=== PATIENT | female | born 1975 | race Caucasian/White ===

== ENCOUNTER 2018-05-01 02:29 | Emergency (ER) | payer SELFPAY ==
[2018-05-01] MEDS: KETOROLAC 15 MG/ML VIAL. IV (03:24)
[2018-05-01] MEDS: fentaNYL PF VIAL 100 MCG/2 ML VIAL IV (03:24)
[2018-05-01 03:49] LABS: ADD MAN DIFF? NO
[2018-05-01 03:53] LABS: BILIRUBIN,URINE NEGATIVE (NEG); CLARITY,URINE CLEAR; COLOR,URINE YELLOW; GLUCOSE,URINE NEGATIVE (NEG); NITRITE,URINE NEGATIVE (NEG); PROTEIN,URINE NEGATIVE (NEG-TRACE)
[2018-05-01 03:54] LABS: BASO # 0.1 x10^3/uL (0.0-0.2); BASO % 1 % (0-3); EOS # 0.1 x10^3/uL (0.0-0.7); EOS % 1 % (0-3); HEMATOCRIT 38.8 % (36.0-47.0); HEMOGLOBIN 13.1 g/dL (12.0-15.5); LYMPH # 1.8 x10^3/uL (1.0-4.8); LYMPH % 18 % (24-48); MEAN CORPUSCULAR HEMOGLOBIN 32 pg (25-35); MEAN CORPUSCULAR HGB CONC 34 g/dL (31-37); MEAN CORPUSCULAR VOLUME 94 fL (79-100); MONO # 0.4 x10^3/uL (0.0-1.1); MONO % 4 % (0-9); NEUT # 7.9 x10^3uL (1.8-7.7); NEUT % 77 % (31-73); PLATELET COUNT 168 x10^3/uL (140-400); RED BLOOD COUNT 4.11 x10^6/uL (3.50-5.40); RED CELL DISTRIBUTION WIDTH 13.3 % (11.5-14.5); WHITE BLOOD COUNT 10.2 x10^3/uL (4.0-11.0)
[2018-05-01 04:05] LABS: BACTERIA,URINE 0 /HPF (0-FEW); HYALINE CASTS, URINE OCCASIONAL /HPF; RBC,URINE TNTC /HPF (0-2); SQUAMOUS EPITHELIAL CELL,UR FEW /LPF; WBC,URINE OCC /HPF (0-4)
[2018-05-01 04:09] LABS: ANION GAP 11 (6-14); BLOOD UREA NITROGEN 15 mg/dL (7-20); BUN/CREATININE RATIO 17 (6-20); CALCIUM 9.7 mg/dL (8.5-10.1); CARBON DIOXIDE 26 mmol/L (21-32); CHLORIDE 101 mmol/L (98-107); CREATININE 0.9 mg/dL (0.6-1.0); GFR 68.7; GLUCOSE 114 mg/dL (70-99); POTASSIUM 3.7 mmol/L (3.5-5.1); SODIUM 138 mmol/L (136-145)
[2018-05-01 04:14] LABS: ALBUMIN 4.1 g/dL (3.4-5.0); ALBUMIN/GLOBULIN RATIO 1.1 (1.0-1.7); ALK PHOS 82 U/L (46-116); ALT (SGPT) 18 U/L (14-59); AST (SGOT) 14 U/L (15-37); TOTAL BILIRUBIN 0.6 mg/dL (0.2-1.0); TOTAL PROTEIN 7.7 g/dL (6.4-8.2)
== END 2018-05-01 04:27 | disposition home or self-care (01) ==
LOC: ER 02:29
DX: N20.2 Calculus of kidney with calculus of ureter (principal); Z90.710 Acquired absence of both cervix and uterus
CPT/HCPCS: 36415; 74176; 80053; 81001; 85025; 96374; 96375; 99285-25; J1885; J3010

== ENCOUNTER 2018-07-23 02:34 | Emergency (ER) | payer SELFPAY ==
[~2018-07-23] VITALS: Ht 167.6 cm; Wt 68.0 kg
[~2018-07-23 02:34] MED LIST: HYDR-971 PO; TAMS0.4C97 PO
[2018-07-23 03:03] LABS: BILIRUBIN,URINE NEGATIVE (NEG); CLARITY,URINE CLEAR; COLOR,URINE YELLOW; NITRITE,URINE NEGATIVE (NEG); PROTEIN,URINE NEGATIVE (NEG-TRACE)
[2018-07-23 03:08] LABS: BACTERIA,URINE MOD /HPF (0-FEW); RBC,URINE 0 /HPF (0-2); WBC,URINE OCC /HPF (0-4)
[2018-07-23 03:09] LABS: SQUAMOUS EPITHELIAL CELL,UR MOD /LPF
--- NOTE | 2018-07-23 03:17 | PHYS DOC ---
Past Medical History Past Medical History: No Pertinent History Past Surgical History: Hysterectomy Alcohol Use: None Drug Use: None Adult General Chief Complaint Chief Complaint: DIZZY/LIGHT HEADED [facility] HPI Patient is a 43 year old female who presents with multiple complaints. Patient states she has been having some lightheadedness and blurred vision. She has had some numbness in the left hand and arm. She has had general malaise and myalgias. She has been feeling this way over the last 2 days. No chest pain or shortness of breath. No palpitations. No focal weakness. The patient is otherwise healthy and does not take medications daily. 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 Review of Systems Review of Systems Constitutional: Denies fever Eyes: Denies change in visual acuity, redness HENT: Denies nasal congestion or sore throat Respiratory: Denies cough or shortness of breath Cardiovascular: No additional information not addressed in HPI GI: Denies abdominal pain, nausea, vomiting : Denies dysuria or hematuria Musculoskeletal: Denies back pain Integument: Denies rash or skin lesions Neurologic: Denies headache, focal neurologic complaints Endocrine: Denies polyuria or polydipsia All other systems were reviewed and found to be within normal limits, except as documented in this note. Current Medications Current Medications Current Medications Medications (Trade) Dose Ordered Sig/Mindy Start Time Stop Time Status Last Admin Dose Admin Sodium Chloride 1,000 ml @ 1,000 mls/hr 1X ONCE 07/23/18 04:30 07/23/18 05:29 07/23/18 04:26 1,000 MLS/HR Allergies Allergies Allergies Coded Allergies Type Severity Reaction Last Updated Verified Sulfa (Sulfonamide Antibiotics) Allergy Unknown 07/23/18 Yes Physical Exam Physical Exam Constitutional: Well developed, well nourished, no acute distress, non-toxic appearance HENT: Normocephalic, atraumatic, bilateral external ears normal, oropharynx moist Eyes: PERRLA, EOMI, conjunctiva normal Neck: Normal range of motion, no tenderness Cardiovascular:Heart rate regular rhythm, no murmur Lungs & Thorax: Bilateral breath sounds clear Abdomen: Bowel sounds normal, soft, no tenderness Skin: Warm, dry, no erythema, no rash Back: No tenderness, no CVA tenderness Extremities: No edema Neurologic: Alert and oriented X 3, normal motor function, subjective numbness in the ulnar distribution of the left hand. normal motor strength Psychologic: Affect normal Current Patient Data Vital Signs Vital Signs Date Time Temp Pulse Resp B/P (MAP) Pulse Ox O2 Delivery O2 Flow Rate FiO2 07/23/18 03:00 97.4 85 18 140/82 (101) 99 Room Air 97.4 Lab Values Laboratory Tests Test 07/23/18 02:53 07/23/18 04:16 White Blood Count 7.1 x10^3/uL (4.0-11.0) Red Blood Count 3.79 x10^6/uL (3.50-5.40) Hemoglobin 12.5 g/dL (12.0-15.5) Hematocrit 36.1 % (36.0-47.0) Mean Corpuscular Volume 95 fL (79-100) Mean Corpuscular Hemoglobin 33 pg (25-35) Mean Corpuscular Hemoglobin Concent 35 g/dL (31-37) Red Cell Distribution Width 14.1 % (11.5-14.5) Platelet Count 172 x10^3/uL (140-400) Neutrophils (%) (Auto) 46 % (31-73) Lymphocytes (%) (Auto) 43 % (24-48) Monocytes (%) (Auto) 8 % (0-9) Eosinophils (%) (Auto) 3 % (0-3) Basophils (%) (Auto) 1 % (0-3) Neutrophils # (Auto) 3.2 x10^3uL (1.8-7.7) Lymphocytes # (Auto) 3.0 x10^3/uL (1.0-4.8) Monocytes # (Auto) 0.6 x10^3/uL (0.0-1.1) Eosinophils # (Auto) 0.2 x10^3/uL (0.0-0.7) Basophils # (Auto) 0.1 x10^3/uL (0.0-0.2) Urine Collection Type Unknown Urine Color Yellow Urine Clarity Clear Urine pH 6.0 Urine Specific [place] 1.025 Urine Protein Negative mg/dL (NEG-TRACE) Urine Glucose (UA) Negative mg/dL (NEG) Urine Ketones (Stick) Negative mg/dL (NEG) Urine Blood Negative (NEG) Urine Nitrite Negative (NEG) Urine Bilirubin Negative (NEG) Urine Urobilinogen Dipstick 1.0 mg/dL (0.2 mg/dL) Urine Leukocyte Esterase Negative (NEG) Urine RBC 0 /HPF (0-2) Urine WBC Occ /HPF (0-4) Urine Squamous Epithelial Cells Mod /LPF Urine Bacteria Mod /HPF (0-FEW) Urine Mucus Mod /LPF Sodium Level 143 mmol/L (136-145) Potassium Level 4.2 mmol/L (3.5-5.1) Chloride Level 107 mmol/L (98-107) Carbon Dioxide Level 27 mmol/L (21-32) Anion Gap 9 (6-14) Blood Urea Nitrogen 14 mg/dL (7-20) Creatinine 0.7 mg/dL (0.6-1.0) Estimated GFR (Cockcroft-Gault) 91.8 Glucose Level 86 mg/dL (70-99) Calcium Level 9.2 mg/dL (8.5-10.1) Troponin I Quantitative < 0.017 ng/mL (0.000-0.055) Influenza Type A Antigen Negative (NEGATIVE) Influenza Type B Antigen Negative (NEGATIVE) Laboratory Tests 07/23/18 02:53 Laboratory Tests 07/23/18 02:53 EKG EKG No STEMI Interpretation Time: 02:50 Radiology/Procedures Radiology/Procedures CT head: No acute findings Course & Med Decision Making Course & Med Decision Making Pertinent Labs and Imaging studies reviewed. (See chart for details) Patient seen and examined in the ER for multiple vague complaints. No chest pain. No focal neuro complaints or findings on her PE. CT head negative. PE suspicious for cubital tunnel syndrome. Influenza negative. Flu neg. Trop and EKG negative. No additional acute findings. She did have HR in upper 90's on arrival. Was given one liter NS and HR decreased to low 80's. She was feeling subjectively improved. She is d/c'd from the ER and advised to establish care with PCP for close f/u. Return to the ER for new or worsening symptoms. Dragon Disclaimer Dragon Disclaimer This electronic medical record was generated, in whole or in part, using a voice recognition dictation system. Departure Departure Referrals: NO PCP (PCP) GUANAKITO HERNANDEZ DO Jul 23, 2018 03:17
--- NOTE | 2018-07-23 03:52 | RAD ---
CT Head W/O Contrast: History: LEFT WEAKNESS; DIZZINESS Comparison: none Axial images were obtained without contrast. The kwon and white matter appears normal and symmetrical for the patients age. There is no mass effect, extraaxial fluid collections or hydrocephalus. There is no gross bleed. There is no focal loss of kwon-white matter distinction to suggest acute ischemia, i.e. stroke. Impression: No acute findings. RS Compliance Statement: One or more of the following individualized dose reduction techniques were utilized for this examination: 1. Automated exposure control 2. Adjustment of the mA and/or kV according to patient size 3. Use of iterative reconstruction technique Electronically signed by: Wale Gallardo III, MD (07/23/2018 3:49 AM) [facility]
[2018-07-23 03:55] LABS: BASO # 0.1 x10^3/uL (0.0-0.2); BASO % 1 % (0-3); EOS # 0.2 x10^3/uL (0.0-0.7); EOS % 3 % (0-3); HEMATOCRIT 36.1 % (36.0-47.0); HEMOGLOBIN 12.5 g/dL (12.0-15.5); LYMPH % 43 % (24-48); MEAN CORPUSCULAR HEMOGLOBIN 33 pg (25-35); MEAN CORPUSCULAR HGB CONC 35 g/dL (31-37); MEAN CORPUSCULAR VOLUME 95 fL (79-100); MONO # 0.6 x10^3/uL (0.0-1.1); MONO % 8 % (0-9); NEUT # 3.2 x10^3uL (1.8-7.7); NEUT % 46 % (31-73); PLATELET COUNT 172 x10^3/uL (140-400); RED BLOOD COUNT 3.79 x10^6/uL (3.50-5.40); RED CELL DISTRIBUTION WIDTH 14.1 % (11.5-14.5); WHITE BLOOD COUNT 7.1 x10^3/uL (4.0-11.0)
[2018-07-23 04:04] LABS: CALCIUM 9.2 mg/dL (8.5-10.1); CREATININE 0.7 mg/dL (0.6-1.0); GFR 91.8; POTASSIUM 4.2 mmol/L (3.5-5.1)
[2018-07-23] MEDS: IV NORMAL SALINE 1000ML BAG 1,000 ML IV ONE (04:26)
[2018-07-23 04:57] LABS: INFLUENZA A PATIENT NEGATIVE (NEGATIVE); INFLUENZA B PATIENT NEGATIVE (NEGATIVE)
[2018-07-23 05:21] VITALS: BP 122/61
--- NOTE | 2018-07-23 06:21 | EKG ---
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 RI6.01 No previous ECG available for comparison Electronically Signed On 07-27-2018 12:41:27 [place] by Bob Mancuso
== END 2018-07-23 05:30 | disposition home or self-care (01) ==
LOC: ER 02:34
DX: R42 Dizziness and giddiness (principal); H53.8 Other visual disturbances; R20.0 Anesthesia of skin; R53.81 Other malaise; Z90.710 Acquired absence of both cervix and uterus
CPT/HCPCS: 36415; 70450; 80048; 81001; 84484; 85025; 87804; 93005; 96360; 99285; J7030

== ENCOUNTER 2019-08-08 15:44 | Emergency (ER) | payer BC ==
[~2019-08-08] VITALS: Ht 167.6 cm; Wt 68.0 kg
[~2019-08-08 15:44] MED LIST changes: +HYDR-3164 PO; -HYDR-971 PO
[2019-08-08 15:50] VITALS: BP 119/65
[2019-08-08] MEDS ORDERED: HYDROcodone/APAP 5/325MG 1 TAB TABLET PO ONE (16:45)
--- NOTE | 2019-08-08 17:10 | RAD ---
Exam: CT head and cervical spine without contrast INDICATION: Fall TECHNIQUE: Sequential axial images through the head and cervical spine were obtained without the administration of IV contrast. Comparisons: None FINDINGS: Head: No focal parenchymal lesion or hemorrhage is identified. There is no midline shift or sulcal effacement. No acute vascular territory infarction is identified. Arana-white distinction is preserved. The ventricular system is within normal limits without compression hydrocephalus. The basal cisterns are well maintained. The visualized portions of the paranasal sinuses and mastoid air cells are well-pneumatized. No acute fractures. Cervical spine: Straightening of cervical spine which may be positional. Vertebral body heights are well-maintained. Fracture to the cervical spine is not identified. No significant spondylotic change in the cervical spine. Emphysematous change noted at the lung apices. IMPRESSION: 1. No acute intracranial abnormality. 2. Negative CT C-spine for acute traumatic injury. Exposure: One or more of the following in the visualized dose reduction techniques were utilized for this examination: 1. Automated exposure control 2. Adjustment of the MA and/or KV according to patient size Use of iterative of reconstructive technique Electronically signed by: Frankie Lopez MD (08/08/2019 5:07 PM) [facility]
--- NOTE | 2019-08-08 17:18 | RAD ---
Ribs left with PA chest History: Pain PA view of the chest and dedicated views of the left ribs were obtained. The heart and pulmonary vessels appear normal. There are linear opacities in the left lung base. The visualized osseous structures appear intact. Impression: Mild left basal infiltrate likely discoid atelectasis. No evidence of a bony displaced rib fracture. End impression Three views left shoulder History: pain Internally and externally rotated AP of shoulder obtained, as well as "Y" view. The glenohumeral relationship is normal. The visualized osseous structures appear normal. Impression: No acute findings. end impression Two View Left Tibia Fibula: Clinical History: Pain. Technique: AP and lateral views were obtained. Comparison: None. Findings: The visualized osseous structures appear normal. The ankle is excluded on the AP view. Impression: No acute findings. Electronically signed by: Wale Gallardo III, MD (08/08/2019 5:15 PM) [facility]
[2019-08-08] MEDS ORDERED: HYDR-3164 PO (17:41)
[2019-08-08] MEDS ORDERED: ORPH100T PO (17:41)
--- NOTE | 2019-08-08 17:42 | PHYS DOC ---
Past Medical History Past Medical History: No Pertinent History Past Surgical History: Hysterectomy Alcohol Use: None Drug Use: None Adult General Chief Complaint Chief Complaint: MECHANICAL FALL HPI HPI Patient is a 44 year old female who presents with got dizzy suddenly and fell down some wooden bleachers at 1:30 this morning. Patient denies LOC. Patient is complaining of left rib pain, shortness of air, left shoulder pain, left lower leg pain. She rates her pain a 9 out of 10. Review of Systems Review of Systems Respiratory: Denies cough. shortness of breath [] Musculoskeletal: Denies back pain. Left ribs, left lower leg, Left shoulder joint pain [] Integument:Left lateral lower leg abrasion. Denies rash or skin lesions [] Neurologic: Denies headache, focal weakness or sensory changes [] All other systems were reviewed and found to be within normal limits, except as documented in this note. Current Medications Current Medications Current Medications Medications (Trade) Dose Ordered Sig/Mindy Start Time Stop Time Status Last Admin Dose Admin Acetaminophen/ Hydrocodone Bitart (Lortab 5/325) 1 tab 1X ONCE 08/08/19 16:45 08/08/19 16:46 DC 08/08/19 17:10 1 TAB Allergies Allergies Allergies Coded Allergies Type Severity Reaction Last Updated Verified Sulfa (Sulfonamide Antibiotics) Allergy Unknown 07/23/18 Yes Physical Exam Physical Exam Constitutional: Well developed, well nourished, no acute distress, non-toxic appearance. [] HENT: Normocephalic, atraumatic, bilateral external ears normal, oropharynx moist, no oral exudates, nose normal. [] Eyes: PERRLA, EOMI, conjunctiva normal, no discharge. [] Neck: Normal range of motion, no tenderness, supple, no stridor. [] Cardiovascular:Heart rate regular rhythm, no murmur [] Lungs & Thorax: Bilateral breath sounds clear to auscultation [] Abdomen: Bowel sounds normal, soft, no tenderness, no masses, no pulsatile masses. [] Skin: Abrasion to left lateral lower leg with bruise. Warm, dry, no erythema, no rash. [] Back: No tenderness, no CVA tenderness. [] Extremities: Top of left shoulder, left lateral lower leg, left ribs tenderness, no cyanosis, no clubbing, ROM intact, no edema. [] Neurologic: Alert and oriented X 3, normal motor function, normal sensory function, no focal deficits noted. [] Psychologic: Affect normal, judgement normal, mood normal. [] Current Patient Data Vital Signs Vital Signs Date Time Temp Pulse Resp B/P (MAP) Pulse Ox O2 Delivery O2 Flow Rate FiO2 08/08/19 17:10 18 08/08/19 15:50 97.7 102 119/65 (83) 98 Room Air 97.7 EKG EKG [] Radiology/Procedures Radiology/Procedures [] Impressions: [facility] [address] [place] [address] IMAGING REPORT Signed PATIENT: JENA BRISENO ACCOUNT: [id number] : 1975 LOCATION: ER AGE: 44 SEX: F EXAM STATUS: REG ER ORD. PHYSICIAN: LORENA SPENCE [employer] REASON: fall PROCEDURE: CT HEAD AND CERVICAL SPINE WO Exam: CT head and cervical spine without contrast INDICATION: Fall TECHNIQUE: Sequential axial images through the head and cervical spine were obtained without the administration of IV contrast. Comparisons: None FINDINGS: Head: No focal parenchymal lesion or hemorrhage is identified. There is no midline shift or sulcal effacement. No acute vascular territory infarction is identified. Arana-white distinction is preserved. The ventricular system is within normal limits without compression hydrocephalus. The basal cisterns are well maintained. The visualized portions of the paranasal sinuses and mastoid air cells are well-pneumatized. No acute fractures. Cervical spine: Straightening of cervical spine which may be positional. Vertebral body heights are well-maintained. Fracture to the cervical spine is not identified. No significant spondylotic change in the cervical spine. Emphysematous change noted at the lung apices. IMPRESSION: 1. No acute intracranial abnormality. 2. Negative CT C-spine for acute traumatic injury. Exposure: One or more of the following in the visualized dose reduction techniques were utilized for this examination: 1. Automated exposure control 2. Adjustment of the MA and/or KV according to patient size Use of iterative of reconstructive technique Electronically signed by: Frankie Estrella MD (08/08/2019 5:07 PM) [place] [id number] DICTATED and SIGNED BY: FRANKIE ESTRELLA MD DATE: 08/08/191706 [facility] [address] [place] [address] IMAGING REPORT Signed PATIENT: JENA BRISENO ACCOUNT: [id number] : 1975 LOCATION: ER AGE: 44 SEX: F EXAM STATUS: REG ER ORD. PHYSICIAN: LORENA SPENCE APRN REASON: Mechanical fall, pain on right side PROCEDURE: RIBS LEFT AND PA CHEST Ribs left with PA chest History: Pain PA view of the chest and dedicated views of the left ribs were obtained. The heart and pulmonary vessels appear normal. There are linear opacities in the left lung base. The visualized osseous structures appear intact. Impression: Mild left basal infiltrate likely discoid atelectasis. No evidence of a bony displaced rib fracture. End impression Three views left shoulder History: pain Internally and externally rotated AP of shoulder obtained, as well as "Y" view. The glenohumeral relationship is normal. The visualized osseous structures appear normal. Impression: No acute findings. end impression Two View Left Tibia Fibula: Clinical History: Pain. Technique: AP and lateral views were obtained. Comparison: None. Findings: The visualized osseous structures appear normal. The ankle is excluded on the AP view. Impression: No acute findings. Electronically signed by: Jenniffer Dumont III, MD (08/08/2019 5:15 PM) [facility] DICTATED and SIGNED BY: JENNIFFER DUMONT III, MD DATE: 08/08/191714 Course & Med Decision Making Course & Med Decision Making Ambulatory with a steady gait. Patient has full range of motion in her left shoulder joint and Left hip, knee and ankle. Patient has a abrasion to her left lower lateral leg with a bruise. Tenderness to Top of shoulder only. Tender to left ribs without bruising, deformity, redness, or crepitus. Lungs clear to auscultation in al lobes. Patient denies taking any pain medications. Tenderness over left lower leg bruise only. Denies numbness or tingling, chest pain, abdominal pain, headache, neck pain, nausea, vomiting, visual changes. No swelling in any of her 70s. Radial pedal pulses strong and present. Skin pink warm and dry. Cap refill less than 3 seconds. Alert and oriented. Speaks in full clear sentences. Denies any weaknesses. No focal spinal bilateral tenderness. No focal weaknesses. Patient has full range of motion of her neck. PERRLA. All x-rays show no acute findings. CT of the head and neck show no acute findings. Patient is given a incentive spirometry and educated on how to use it by RN. Patient to follow up with primary care provider. Andrés Disclaimer Andrés Disclaimer This electronic medical record was generated, in whole or in part, using a voice recognition dictation system. Departure Departure Impression: Primary Impression: Contusion Additional Impressions: Fall Leg pain Shoulder pain Rib pain on left side Disposition: HOME, SELF-CARE Condition: STABLE Referrals: NO PCP (PCP) Patient Instructions: Contusion, Fall Prevention and Home Safety Additional Instructions: Use ice and heating pad to help with pain. Take medication as prescribed. Scripts Orphenadrine Citrate (ORPHENADRINE CITRATE) 100 Mg Tablet.er 1 TAB PO BID, #20 TAB Prov: LORENA SPENCE APRN 08/08/19 Hydrocodone/Apap 5-325 (NORCO 5-325 TABLET) 1 Each Tablet 1 TAB PO PRN Q6HRS PRN for PAIN, #10 TAB 0 Refills Prov: LORENA SPENCE APRN 08/08/19 Problem Qualifiers Primary Impression: Contusion Encounter type: initial encounter Contusion area: lower leg Laterality: left Qualified Codes: S80.12XA - Contusion of left lower leg, initial encounter Additional Impressions: Fall Encounter type: initial encounter Qualified Codes: W19.XXXA - Unspecified fall, initial encounter Leg pain Laterality: left Qualified Codes: M79.605 - Pain in left leg Shoulder pain Chronicity: acute Laterality: left Qualified Codes: M25.512 - Pain in left shoulder LORENA SPENCE [employer] Aug 08, 2019 17:42
== END 2019-08-08 17:55 | disposition home or self-care (01) ==
LOC: ER 15:44
DX: S80.12XA Contusion of left lower leg, initial encounter (principal); R07.81 Pleurodynia; M25.512 Pain in left shoulder; R42 Dizziness and giddiness; Z88.2 Allergy status to sulfonamides; W18.39XA Other fall on same level, initial encounter; Y93.89 Activity, other specified; Y92.89 Other specified places as the place of occurrence of the external cause; Y99.8 Other external cause status
CPT/HCPCS: 70450; 71101; 72125; 73030; 73590; 99284

== ENCOUNTER 2020-05-09 11:36 | Emergency (ER) | payer BC, OTHER ==
[~2020-05-09] VITALS: Ht 167.6 cm; Wt 72.7 kg
[~2020-05-09 11:36] MED LIST changes: +ORPH100T PO
--- NOTE | 2020-05-09 12:29 | PHYS DOC ---
Past Medical History Past Medical History: No Pertinent History Past Surgical History: Hysterectomy Smoking Status: Current Every Day Smoker Additional Information: 1 ppd Alcohol Use: None Drug Use: None General Adult EDM: Chief Complaint: HAND PROBLEM HPI: HPI: Patient is a 45 year old female who presents with right dorsal hand pain on the radial side that is sharp and shooting and radiates to the radial side of the elbow. This is been going on for the last week. She states 2 weeks ago a box did fall and landed on top of her hand and smashed it but she did not seek any medical care but and she was using hand is fine. States when she attempts to try to make a fist the pain is worse. Patient states that she does have tingling in the first second and thumb in the right hand. She does have a red swollen area to the radial side of the anterior hand that is very tender. Patient has full range of motion of her wrist and elbow. No focal weakness. Rates her pain a 10 out of 10. 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 Radial pulse strong present. Skin pink warm and dry. Cap refill less than 2 seconds. Patient has a history of smoking. Review of Systems: Review of Systems: Constitutional: Denies fever or chills. [] Eyes: Denies change in visual acuity. [] HENT: Denies nasal congestion or sore throat. [] Respiratory: Denies cough or shortness of breath. [] Cardiovascular: Denies chest pain. 2+ edema to dorsal right hand. [] GI: Denies abdominal pain, nausea, vomiting, bloody stools or diarrhea. [] : Denies dysuria. [] Musculoskeletal: Denies back pain. Dorsal hand on the radial side that radiates up to the radial side of the elbow joint pain. [] Integument: Denies rash. Right dorsal hand on the radial side redness and tender. [] Neurologic: Denies headache, focal weakness. Right thumb, index, middle finger sensory changes. [] Endocrine: Denies polyuria or polydipsia. [] Lymphatic: Denies swollen glands. [] Psychiatric: Denies depression or anxiety. [] Heart Score: Risk Factors: Risk Factors: DM, Current or recent (<one month) smoker, HTN, HLP, family history of CAD, obesity. Risk Scores: Score 0 - 3: 2.5% MACE over next 6 weeks - Discharge Home Score 4 - 6: 20.3% MACE over next 6 weeks - Admit for Clinical Observation Score 7 - 10: 72.7% MACE over next 6 weeks - Early Invasive Strategies Allergies: Allergies: Allergies Coded Allergies Type Severity Reaction Last Updated Verified Sulfa (Sulfonamide Antibiotics) Allergy Intermediate rash 05/09/20 Yes Physical Exam: PE: Constitutional: Well developed, well nourished, no acute distress, non-toxic appearance. [] HENT: Normocephalic, atraumatic, bilateral external ears normal, oropharynx moist, no oral exudates, nose normal. [] Eyes: PERRLA, EOMI, conjunctiva normal, no discharge. [] Neck: Normal range of motion, no tenderness, supple, no stridor. [] Cardiovascular:Heart rate regular rhythm, no murmur [] Lungs & Thorax: Bilateral breath sounds clear to auscultation [] Abdomen: Bowel sounds normal, soft, no tenderness, no masses, no pulsatile masses. [] Skin: Warm, dry, right dorsal hand on radial side erythema with tenderness, no rash. [] Back: No tenderness, no CVA tenderness. [] Extremities: No tenderness, no cyanosis, no clubbing, ROM intact, no edema. [] Neurologic: Alert and oriented X 3, normal motor function, decreased sensory right thumb, index, middle finger function, no focal deficits noted. [] Psychologic: Affect normal, judgement normal, mood normal. [] Current Patient Data: Vital Signs: Vital Signs Date Time Temp Pulse Resp B/P (MAP) Pulse Ox O2 Delivery O2 Flow Rate FiO2 05/09/20 12:03 98.5 82 16 131/70 (90) 97 Room Air 98.5 EKG: EKG: [] Radiology/Procedures: Radiology/Procedures: [] Impression: [facility] [address] [place] [address] IMAGING REPORT Signed PATIENT: JENA BRISENO ACCOUNT: [id number] : 1975 LOCATION: ER AGE: 45 SEX: F EXAM STATUS: REG ER ORD. 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 HISTORY: Pain and swelling. TECHNIQUE: Arana scale and color Doppler sonographic evaluation of the right upper extremity veins with spectral waveform analysis was performed. FINDINGS: There is normal color flow, normal compressibility and there are normal spectral waveforms in the upper extremity veins. IMPRESSION: No Doppler evidence of upper extremity venous thrombosis. Electronically signed by: Naomie Brooks MD (05/09/2020 12:55 PM) [id number] DICTATED and SIGNED BY: NAOMIE BROOKS MD DATE: 05/09/20 1255 [facility] [address] [place] [address] IMAGING REPORT Signed PATIENT: JENA BRISENO ACCOUNT: [id number] : 1975 LOCATION: ER AGE: 45 SEX: F EXAM STATUS: REG ER ORD. PHYSICIAN: LORENA SPENCE APRN REASON: swelling, pain, dorsal hand - pt unable to remove rings PROCEDURE: HAND RIGHT 3V EXAM: RIGHT HAND 3 VIEWS. HISTORY: Dorsal right hand pain and swelling. COMPARISON: None. FINDINGS: Large rings partially obscure the first and fourth proximal phalanges. No fractures are identified. Alignment is maintained. Joint spaces are maintained. IMPRESSION: 1. No fracture. Electronically signed by: Austyn Shetty MD (05/09/2020 12:43 PM) [id number] DICTATED and SIGNED BY: ES SHETTY MD DATE: 05/09/20 1243 Course & Med Decision Making: Course & Med Decision Making Pertinent Labs and Imaging studies reviewed. (See chart for details) See HPI. Patient denies focal weakness, extremity going cold, skin color changes. Swelling to the dorsal hand is 2+. X-ray and ultrasound show no acute findings. I feel this is likely a ganglion cyst. I will refer the patient to orthopedics. We will give her a velcro wrist brace and some pain medication. [] Dragon Disclaimer: Dragon Disclaimer: This electronic medical record was generated, in whole or in part, using a voice recognition dictation system. Departure Departure Impression: Primary Impression: Hand pain, right Disposition: 01 HOME, SELF-CARE Condition: STABLE Referrals: NO PCP (PCP) JENNIFFER FRENCH MD Patient Instructions: Ganglion Cyst Additional Instructions: Follow up with orthopedics. Use ice and pain medication as prescribed and do not drive or drink on the medication. Scripts Hydrocodone/Apap 5-325 (NORCO 5-325 TABLET) 1 Each Tablet 1 TAB PO PRN Q6HRS PRN for PAIN, #12 TAB 0 Refills Prov: LORENA SPENCE APRN 05/09/20 Justicifation of Admission Dx: Justifications for Admission: Justification of Admission Dx: N/A LORENA SPENCE APRN May 09, 2020 12:29
[2020-05-09] MEDS ORDERED: HYDROcodone/APAP 5/325MG 1 TAB TABLET PO ONE (12:30)
--- NOTE | 2020-05-09 12:46 | RAD ---
EXAM: RIGHT HAND 3 VIEWS. HISTORY: Dorsal right hand pain and swelling. COMPARISON: None. FINDINGS: Large rings partially obscure the first and fourth proximal phalanges. No fractures are identified. Alignment is maintained. Joint spaces are maintained. IMPRESSION: 1. No fracture. Electronically signed by: Austyn Shetty MD (05/09/2020 12:43 PM) [id number]
--- NOTE | 2020-05-09 12:58 | RAD ---
EXAM: Right upper extremity venous Doppler sonogram. HISTORY: Pain and swelling. TECHNIQUE: Arana scale and color Doppler sonographic evaluation of the right upper extremity veins with spectral waveform analysis was performed. FINDINGS: There is normal color flow, normal compressibility and there are normal spectral waveforms in the upper extremity veins. IMPRESSION: No Doppler evidence of upper extremity venous thrombosis. Electronically signed by: Naomie Barron MD (05/09/2020 12:55 PM) [id number]
[2020-05-09] MEDS ORDERED: HYDR-3164 PO (13:07)
[2020-05-09 13:21] VITALS: BP 117/79
== END 2020-05-09 13:22 | disposition home or self-care (01) ==
LOC: ER 11:36
DX: M79.641 Pain in right hand (principal); M25.521 Pain in right elbow; F17.200 Nicotine dependence, unspecified, uncomplicated; Z88.2 Allergy status to sulfonamides
CPT/HCPCS: 29125; 73130; 93971; 99284

== ENCOUNTER 2020-11-12 02:49 | Emergency (ER) | payer BC ==
[~2020-11-12] VITALS: Ht 167.6 cm; Wt 68.2 kg
--- NOTE | 2020-11-12 03:42 | PHYS DOC ---
Past Medical History Past Medical History: No Pertinent History Past Surgical History: Hysterectomy Smoking Status: Current Every Day Smoker Alcohol Use: Occasionally Drug Use: None General Adult EDM: Chief Complaint: LACERATION/AVULSION HPI: HPI: Patient is a 45 year old female presents to the ED today with 2 cm laceration on the right olecranon process that occurred about an hour ago. Patient states that she was going to work this morning when she tripped on some ice and fell and landed on her right elbow. Patient did not take anything for pain and she denies any associated symptoms. Patient does not take any blood thinners. [] Review of Systems: Review of Systems: Constitutional: Denies fever or chills Eyes: Denies redness or eye pain HENT: Denies nasal congestion or sore throat Respiratory: Denies cough or shortness of breath Cardiovascular: Denies chest pain or palpitations GI: Denies abdominal pain, nausea, or vomiting : Denies dysuria or hematuria Musculoskeletal: Denies back pain Integument: Denies rash or skin lesions Neurologic: Denies headache, focal weakness or sensory changes Complete systems were reviewed and found to be within normal limits, except as documented in this note. Current Medications: Current Medications Medications (Trade) Dose Ordered Sig/Mindy Start Time Stop Time Status Last Admin Dose Admin Lidocaine/ Epinephrine (LIDOCAINE 2%-EPI 1:100,000 multi-dose) 20 ml 1X ONCE 11/12/20 03:30 11/12/20 03:31 UNV Neomycin/ Polymyxin/ Bacitracin (Triple Antibiotic Ointment) 1 pkt 1X ONCE 11/12/20 03:30 11/12/20 03:31 UNV Allergies: Allergies: Allergies Coded Allergies Type Severity Reaction Last Updated Verified Sulfa (Sulfonamide Antibiotics) Allergy Intermediate rash 05/09/20 Yes Physical Exam: PE: Constitutional: Well developed, well nourished, no acute distress, non-toxic appearance HENT: Normocephalic, atraumatic Eyes: PERRL, EOMI, conjunctiva normal, no discharge Neck: Normal range of motion, no tenderness, supple Lungs & Thorax: No respiratory distress, equal chest rise and fall Abdomen: Soft, no tenderness Skin: Warm, dry, no erythema, no rash Back: No tenderness, no CVA tenderness Extremities: 2 cm laceration on the right olecranon process without erythema, ecchymoses. There is mild swelling noted Neurologic: Alert and oriented X 3, normal motor function, normal sensory function, no focal deficits noted Psychologic: Affect normal, judgment normal Current Patient Data: Vital Signs: Vital Signs Date Time Temp Pulse Resp B/P (MAP) Pulse Ox O2 Delivery O2 Flow Rate FiO2 11/12/20 02:55 97.9 101 18 120/86 (97) 98 Room Air 97.9 EKG: EKG: [] Radiology/Procedures: Radiology/Procedures: PROCEDURE: ELBOW RIGHT 3V Study: XR ELBOW COMPLETE_RIGHT 3+ VIEWS Indication: Pain. Laceration. Comparison: None. Findings: Laceration injury to the dorsum of the elbow overlying the olecranon process. No associated fracture, traumatic malalignment or elbow joint effusion. Impression: Laceration to the dorsum of the elbow without an associated fracture. Electronically signed by: RICHIE ANDRADE MD (11/12/2020 4:00 AM) [facility] DICTATED and SIGNED BY: RICHIE ADNRADE MD DATE: 11/12/20 [id number] 0 [] Course & Med Decision Making: Course & Med Decision Making Patient is a 45 year old female presents to the ED today with 2 cm laceration on the right olecranon process that occurred about an hour ago. Patient states that she was going to work this morning when she tripped on some ice and fell and landed on her right elbow. Patient's laceration was closed with 2 sutures. Patient stable for discharge with outpatient follow-up with PCP. Patient was informed about appropriate suture care and removal. Discussed findings and plan with patient, who acknowledges understanding and agreement. [] Dragon Disclaimer: Dragon Disclaimer: This electronic medical record was generated, in whole or in part, using a voice recognition dictation system. Laceration/Wound Repair Laceration/Wound Repair : Wound Location: upper extremity (Right olecranon process) Wound's Depth, Shape: linear Wound Explored: no foreign body removed Irrigated w/ Saline (ccs): 50 Anesthesia: Lidocaine w/ Epi (2%) Volume Anesthetic (ccs): 3 Suture Size/Type: 3:0, nylon Number of Sutures: 2 Sterile Dressing Applied?: Yes Progress Do not soak your wound. You may shower. Clean wound daily with soap and water. Change dressing 2 times daily. Use over the counter antibiotic ointment with each dressing change. Sutures need to be removed in 5 days. Present to your family doctor or local urgent care for removal. You may also present to the ED but it will be an additional visit/charge. After suture removal you may use Vitamin E ointment to soften the wound and prevent scarring. 2 cm laceration closed with 2 sutures. Departure Departure Impression: Primary Impression: Laceration of elbow, right Qualified Codes: S51.011A - Laceration without foreign body of right elbow, initial encounter Disposition: 01 DC HOME SELF CARE/HOMELESS Condition: STABLE Referrals: NO PCP (PCP) Patient Instructions: Laceration Care, Adult, [id number] Additional Instructions: Do not soak your wound. You may shower. Clean wound daily with soap and water. Change dressing 2 times daily. Use over the counter antibiotic ointment with each dressing change. Sutures need to be removed in 7-10 days. Present to your family doctor or local urgent care for removal. You may also present to the ED but it will be an additional visit/charge. After suture removal you may use Vitamin E ointment to soften the wound and prevent scarring. MARÍA LORENZO DO Nov 12, 2020 03:42
[2020-11-12] MEDS ORDERED: NEOMY/BACITR/POLYMYXIN OINT PACKET. TP ONE (03:45)
[2020-11-12] MEDS ORDERED: LIDOCAINE 2%/EPI 1:100,000 20 ML VIAL. INJ ONE (03:45)
--- NOTE | 2020-11-12 04:03 | RAD ---
Study: XR ELBOW COMPLETE_RIGHT 3+ VIEWS Indication: Pain. Laceration. Comparison: None. Findings: Laceration injury to the dorsum of the elbow overlying the olecranon process. No associated fracture, traumatic malalignment or elbow joint effusion. Impression: Laceration to the dorsum of the elbow without an associated fracture. Electronically signed by: RICHIE ANDRADE MD (11/12/2020 4:00 AM) [facility]
[2020-11-12] MEDS ORDERED: DIPH,PERTUSS(ACELL),TET VAC/PF 0.5 ML SYRINGE. VAX IM ONE (04:45)
[2020-11-12 04:54] VITALS: BP 121/74
== END 2020-11-12 04:58 | disposition home or self-care (01) ==
LOC: ER 02:49
DX: S51.011A Laceration without foreign body of right elbow, initial encounter (principal); F17.200 Nicotine dependence, unspecified, uncomplicated; Z88.2 Allergy status to sulfonamides; Z90.710 Acquired absence of both cervix and uterus; W01.0XXA Fall on same level from slipping, tripping and stumbling without subsequent striking against object, initial encounter; Y93.89 Activity, other specified; Y92.89 Other specified places as the place of occurrence of the external cause; Y99.8 Other external cause status
CPT/HCPCS: 12001; 73080; 90471; 90715; 99285; J3490